=== PATIENT | female | born 1950 | race Caucasian/White ===

== ENCOUNTER 2020-04-04 07:15 | Day surgery (SDC) | payer MEDICARE, OTHER, SELFPAY ==
[2020-04-01 09:33] VITALS: BMI 41.5
--- NOTE | 2020-04-02 12:39 | HP_ITS ---
DATE OF SERVICE: 04/04/2020 DATE OF PROPOSED SURGERY: April 04, 2020. PREOPERATIVE DIAGNOSES: 1. Hammertoe, right 2nd toe. 2. Hammertoe, right 3rd toe. 3. Hammertoe, right 4th toe. PLANNED PROCEDURES: 1. Hammertoe repair, right 2nd. 2. Hammertoe repair, right 3rd. 3. Hammertoe repair, right 4th. PLANNED ANESTHESIA: MAC anesthesia. CHIEF COMPLAINT AND HISTORY OF PRESENT ILLNESS: Hortencia Mae is a 69-year-old female, who relates history of painful hammertoe deformities bilateral feet, the right foot being more advanced than the left. She relates her pain has been present over the past several months and has progressively worsened. Her pain is aggravated by shoe gear and walking activity. Conservative treatment consisting of altered shoe gear as well as accommodative padding has proven ineffective and the patient is now requesting surgical treatment. PAST MEDICAL HISTORY: Positive for obesity, hypertension, hyperlipidemia, osteoarthritis. MEDICATIONS: Quinapril, hydrochlorothiazide, fish oil, vitamin D3, Centrum vitamins, and turmeric. ALLERGIES: THE PATIENT HAS NO KNOWN DRUG ALLERGIES OR SENSITIVITIES. SOCIAL HISTORY: The patient denies smoking, she does relate alcohol use, drinks 1 to 2 cups of coffee per day and also relates occasional marijuana use. FAMILY HISTORY: Significant for arthritis, hypertension, diabetes. PODIATRIC PHYSICAL EXAMINATION: VASCULAR EXAM: The patient displays +2/4 pulses with DP and PT arteries bilateral feet. The patient also displays +2/4 pitting edema bilateral feet, ankles, and legs. NEUROLOGIC EXAM: Reveals intact sensation bilateral. DERMATOLOGIC EXAM: Reveals intact skin bilateral. ORTHOPEDIC EXAM: Reveals bunion deformity bilateral first metatarsophalangeal joint, as well as hammertoe deformity bilateral 2nd through 5th toes. The patient was seen most recently in my office on February 23, 2020. Preoperative informed consent will be obtained from the patient on the morning of surgery, April 04, 2020. Preoperative medical clearance has been provided by the patient's primary care physician, Dr. Walls. NIRAV Valdivia / [phone]
--- NOTE | 2020-04-02 17:52 | MHC.SHP ---
Pre-Procedural Eval Section A The patient is an INPATIENT: No Changes since office visit: No Cold of Flu in the past 2 weeks, No New Medical Problems, No Changes in Medication and No Patient answered all questions The History & Physical has been completed within 30 days and I have reviewed it.: Yes Section B Chief Complaint: HAMMER TOE RIGHT SECOND AND THIRD Details of Present Illness: pain with shoes Relevant Family History (Specify if Yes): No Relevant Social History: Other (specify) (marijuana use) Present Medications: see Short Stay Collaborative assessment Allergies: Allergies Allergy/AdvReac Type Severity Reaction Status Date / Time ciprofloxacin Allergy Anaphylaxis Verified 04/01/20 09:32 levofloxacin Allergy Itching Verified 04/01/20 09:32 Plan Diagnosis/Plan: Unchanged Patient has been examined and remains a candidate for the planned procedure
--- NOTE | 2020-04-03 14:08 | HO.ANESPROP2 ---
Documented by User: Amparo Ramírez 04/03/20 14:10 HPI - Anesthesia Eval Consult details Narrative: 69yo F for Hammertoe Repair PCP cleared [facility] Past Medical History Medical History Arthritis COPD (chronic obstructive pulmonary disease) Dental bridge present DJD (degenerative joint disease) Elevated cholesterol HTN (hypertension) Hx: UTI (urinary tract infection) PVD (peripheral vascular disease) Surgical History Surgical History History of tooth extraction History of total bilateral knee replacement (TKR) Hx of bilateral breast biopsy Hx of tonsillectomy Social History Social History (Updated 04/01/20 @ 09:33 by Gabriela Calloway) Smoking Status: Former smoker Smoking Quit Date: 2015 Use of substances other than those prescribed or required for medical reasons: No Advance Directives: No Advance Directives Information Provided: No Advance Directives on File: No Meds Allergies Allergy/AdvReac Type Severity Reaction Status Date / Time ciprofloxacin Allergy Anaphylaxis Verified 04/04/20 07:36 levofloxacin Allergy Itching Verified 04/04/20 07:36 Home Medications Medication Instructions Recorded Confirmed Type quinapril 40 mg PO BID 04/01/20 04/04/20 History Exam Exam Date and Time: April 03, 2020 1408 Height,Weight and Vital Signs: Height 5 ft 5 in Weight 113.398 kg Narrative Narrative: EKG 02/2020: SR@60, mild LVH (old), No acute changes Assessment and Plan Assessment Anesthesia Assessment: Chart Reviewed Documented by User: Zarina West 04/04/20 09:01 [facility] Past Medical History Medical History Arthritis COPD (chronic obstructive pulmonary disease) Dental bridge present DJD (degenerative joint disease) Elevated cholesterol HTN (hypertension) Hx: UTI (urinary tract infection) PVD (peripheral vascular disease) Surgical History Surgical History History of tooth extraction History of total bilateral knee replacement (TKR) Hx of bilateral breast biopsy Hx of tonsillectomy Social History Social History (Updated 04/01/20 @ 09:33 by Gabriela Calloway) Smoking Status: Former smoker Smoking Quit Date: 2015 Use of substances other than those prescribed or required for medical reasons: No Advance Directives: No Advance Directives Information Provided: No Advance Directives on File: No Meds Allergies Allergy/AdvReac Type Severity Reaction Status Date / Time ciprofloxacin Allergy Anaphylaxis Verified 04/04/20 07:36 levofloxacin Allergy Itching Verified 04/04/20 07:36 Home Medications Medication Instructions Recorded Confirmed Type quinapril 40 mg PO BID 04/01/20 04/04/20 History
[2020-04-04 07:38] VITALS: BP 154/83; PULSE 70; RESP 18; TEMP 36.6; O2SAT 95
[2020-04-04] MEDS: Lactated Ringers 1,000 ML 100 ML IVCONT (07:56)
[2020-04-04] MEDS: ceFAZolin Sodium/Dextrose,Iso 2 GM/50 ML PIGGYBACK IV (07:57)
--- NOTE | 2020-04-04 09:40 | MHC.SHP ---
Pre-Procedural Eval Section A The patient is an INPATIENT: No Changes since office visit: No Cold of Flu in the past 2 weeks, No New Medical Problems, No Changes in Medication and No Patient answered all questions The History & Physical has been completed within 30 days and I have reviewed it.: Yes Section B Chief Complaint: HAMMER TOE RIGHT SECOND AND THIRD Relevant Family History (Specify if Yes): No Relevant Social History: None Medical History: No relevant PMH Allergies: Allergies Allergy/AdvReac Type Severity Reaction Status Date / Time ciprofloxacin Allergy Anaphylaxis Verified 04/04/20 07:36 levofloxacin Allergy Itching Verified 04/04/20 07:36 Plan Diagnosis/Plan: Unchanged Patient has been examined and remains a candidate for the planned procedure
--- NOTE | 2020-04-04 09:40 | PM.OP ---
Brief Operative Note Date of Service: 04/04/20 Pre-op diagnosis: hamertoe deformity right 2, 3 and 4th toes Post-op diagnosis: other (hammertoe right 2, 3 and 4th toes and contracture right 2nd mtpj) Procedure: hammertoe repair right 2, 3 and 4th toes and extensor tenotomy and capsulotomy right 2nd mtpj Surgeon: Kvng Yusuf Estimated blood loss (mL): 1.0 Tourniquet time (min): 40 Condition: stable Disposition: PACU
[2020-04-04 09:42] VITALS: BP 143/76; PULSE 65; RESP 16; TEMP 36.4; O2SAT 98
[2020-04-04 09:57] VITALS: BP 148/69; PULSE 64; RESP 16; O2SAT 98
[2020-04-04 10:12] VITALS: BP 149/65; PULSE 60; RESP 16; TEMP 36.1; O2SAT 99
--- NOTE | 2020-04-04 10:54 | OP_ITS ---
SURGEON: Kvng Yusuf DPM PREOPERATIVE DIAGNOSIS: POSTOPERATIVE DIAGNOSIS: PROCEDURE PERFORMED: ESTIMATED BLOOD LOSS: COMPLICATIONS: ANESTHESIA: Consisted of local administration of a total of 8 mL of an equal mix of 2% lidocaine with epinephrine 1:100,000 of 0.5% Marcaine plain. Intravenous sedation was provided by the anesthesia department. ANESTHESIOLOGIST: Dr. SovagoDr. Lo ASSISTANTS: SPECIMENS: PREOPERATIVE DIAGNOSES: 1. Hammertoe, right 2nd. 2. Hammertoe, right 3rd. 3. Hammertoe, right 4th. POSTOPERATIVE DIAGNOSES: 1. Hammertoe, right 2nd. 2. Hammertoe, right 3rd. 3. Hammertoe, right 4th. 4. 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 PROCEDURES PERFORMED: 1. Hammertoe repair, right 2nd. 2. Hammertoe repair, right 3rd. 3. Hammertoe repair, right 4th. 4. Extensor tenotomy and dorsal capsulotomy of the right 2nd metatarsophalangeal joint. ASSISTANCE SURGEON: Dr. Redding. INTRODUCTION: The patient was brought to the operating room, placed on the operating table in the supine position. After having been suitably anesthetized with local infiltrative anesthesia, the right lower extremity was then prepped and draped in the usual sterile manner. Please note that prior to the start of the procedure, the right foot was exsanguinated utilizing Esmarch bandage, and right ankle tourniquet was inflated to 250 mmHg pressure for the duration of the procedures. HAMMERTOE REPAIR RIGHT 2ND, 3RD, AND 4TH TOES: Attention was directed to the dorsum of the right 2nd, 3rd, and 4th toes where midline incisions were placed, effected centered over the dorsum of the proximal interphalangeal joint of each individual digit. The skin incisions were underscored and retracted. Hemostasis was acquired as necessary. A transverse incision was effected through the extensor tendon complex at the level of the proximal interphalangeal joint and extensor tendon was underscored and retracted. The hypertrophic head of the proximal phalanx was delivered from the wound and excised utilizing sagittal saw. The hypertrophic middle phalanx of the 2nd toe, base was resected utilizing sagittal saw as well. The wounds were irrigated with copious amounts of sterile saline. Utilizing the hemostats, the flexor tendon was isolated and tenotomized at the level of the proximal interphalangeal joint on each individual digit. Extensor tendon was coapted to maintain utilizing 3-0 Vicryl. Skin margins closed with 4-0 nylon. Please note, on the 2nd toe, the proximal phalanx was still contracted and would not lay flat and therefore, an additional procedure was performed with an incision approximately 1.5 cm in length centered over the dorsum of the right 2nd metatarsophalangeal joint. Incision was deepened in same plane. Hemostasis was acquired utilizing hemostats. Extensor tendons were identified and tenotomized via sharp dissection. A dorsal, medial, and lateral capsulotomy was performed via sharp dissection. This gave excellent reduction of the contracture of this joint and allowed the proximal phalanx to lay flat. The skin margins were closed with 4-0 nylon. CONCLUSION: At the inclusion of these procedures, the operative sites were injected with 5 mL of Marcaine, 0.5% plain, 1 mL of dexamethasone phosphate. Surgical incisions were dressed with Xeroform, 1 inch Conform, and 2 inch Conform as well as Betadine-soaked gauze. The patient tolerated the surgery and anesthesia well. The right ankle tourniquet was deflated. Normal blood flow reestablished to the right lower extremity. The patient was discharged to Recovery with vital signs stable via cart. FINAL DISPOSITION: The patient is discharged to home with instructions for self-care and include the followin. To keep the dressings dry, clean, and intact. 2. To keep the right leg elevated with ice above the ankle. 3. To take all medications as prescribed. 4. To limit activity to minimum. 5. To always use surgical shoe and walker when ambulating. 6. Lastly, the patient already has prescriptions at home for ibuprofen 800 mg one p.o. t.i.d. p.c., gabapentin 400 mg one p.o. daily at bedtime, and a prescription for oxycodone 5 mg total number of 10, 1 p.o. q.6h p.r.n. pain. Lastly, I am also going to give a prescription for Keflex 500 mg total #20 one p.o. b.i.d. for this patient. NIRAV Valdivia/NIR / [phone]
== END 2020-04-04 10:40 | disposition home or self-care (01) ==
PROVIDERS: PCP Internal Medicine; Visit Provider Podiatrist
PROC: (CPT 28285; principal; 2020-04-04 08:40)
DX: M20.41 Other hammer toe(s) (acquired), right foot (principal); M24.574 Contracture, right foot; M19.90 Unspecified osteoarthritis, unspecified site; I10 Essential (primary) hypertension; J44.9 Chronic obstructive pulmonary disease, unspecified; Z79.899 Other long term (current) drug therapy; Z88.1 Allergy status to other antibiotic agents; Z87.891 Personal history of nicotine dependence
CPT/HCPCS: 28285 ×3; 28234; 88304; 88311; J0690; J1100; J2250

== ENCOUNTER → 2020-04-29 13:16 | Outpatient (BNVA) | payer MEDICARE, OTHER, SELFPAY | PROVIDERS: PCP Internal Medicine; Visit Provider Physician Assistant | DX: Z76.89 Persons encountering health services in other specified circumstances (principal) ==

== ENCOUNTER → 2020-05-02 08:17 | Outpatient (BNVA) | payer MEDICARE, OTHER, SELFPAY | PROVIDERS: PCP Internal Medicine; Visit Provider Surgery | DX: E66.01 Morbid (severe) obesity due to excess calories (principal); I10 Essential (primary) hypertension; J44.9 Chronic obstructive pulmonary disease, unspecified | CPT/HCPCS: Q3014 ==

== ENCOUNTER 2020-05-20 08:13 | Outpatient (REF) | payer MEDICARE, OTHER, SELFPAY ==
--- NOTE | 2020-05-20 08:34 | ECG_ITS ---
Test Reason : MORBID OBESITY Blood Pressure : / mmHG Vent. Rate : 080 BPM Atrial Rate : 080 BPM P-R Int : 164 ms QRS Dur : 092 ms QT Int : 370 ms P-R-T Axes : 010 -24 054 degrees QTc Int : 426 ms Normal sinus rhythm Voltage criteria for left ventricular hypertrophy Nonspecific ST abnormality Abnormal ECG No previous ECGs available Referred By: Norman Mueller Electronically Signed By:PARTHA LUNA
[2020-05-20 08:58] LABS: MANUAL DIFF FLAG NO
[2020-05-20 09:08] LABS: Basophils Percent Auto 0.5 % (0-2); Eosinophils Absolute Auto 0.1 X10*3/uL (0.0-0.4); Eosinophils Percent Auto 1.6 % (0-4); Hematocrit 42.8 % (37-47); Hemoglobin 14.1 g/dl (12.0-16.0); Imm Gran Abs Auto 0.02 X10*3/uL (0.00-0.03); Imm Gran Pct Auto 0.3 % (0.0-0.4); Lymphocytes Absolute Auto 1.9 X10*3/uL (1.2-4.9); Lymphocytes Percent Auto 29.1 % (20-40); Mean Corpuscular HGB Conc 32.9 g/dl (31.0-35.0); Mean Corpuscular Hemoglobin 29.3 pg (27.0-33.0); Mean Corpuscular Volume 88.8 fL (80-98); Monocytes Absolute Auto 0.6 X10*3/uL (0.1-1.2); Monocytes Percent Auto 8.8 % (2-11); Neutrophils Absolute Auto 3.8 X10*3/uL (2.0-8.3); Neutrophils Percent Auto 59.7 % (45-73); Platelet Count 316 X10*3/uL (160-400); Red Blood Count 4.82 X10*6/uL (4.20-5.50); Red Cell Distribution Width 13.6 % (11.0-16.0); White Blood Count 6.4 X10*3/uL (4.8-10.8)
[2020-05-20 09:19] LABS: Estimated Average Glucose 111 mg/dL; Hemoglobin A1c % 5.5 %
[2020-05-20 09:39] LABS: Alanine Aminotransferase 31 U/L (0-31); Albumin Level 4.6 g/dL (3.5-5.0); Alkaline Phosphatase 60 U/L (39-117); Anion Gap 13 (12-20); Aspartate Amino Transferase 29 U/L (5-31); Bilirubin Total 0.5 mg/dL (0.0-1.0); Blood Urea Nitrogen 24 mg/dL (9-16); C Reactive Protein 0.24 mg/dL (< or = 0.50); Calcium 9.3 mg/dL (8.4-10.2); Carbon Dioxide 27 mmol/L (22-29); Chloride 104 mmol/L (96-108); Cholesterol 199 mg/dL; Estimated Glomerular Filt Rate > 60; Glucose Random 109 mg/dL (60-115); HDL Cholesterol 53 mg/dL; LDL Cholesterol Calculated 125 mg/dl; Potassium 4.2 mmol/l (3.3-5.1); Sodium 140 mmol/L (135-145); Total Protein 7.7 g/dL (6.5-8.0); Triglycerides 108 mg/dL
[2020-05-20 09:54] LABS: Ferritin 223 ng/mL (10-250); TSH reflex Free T4 2.25 mIU/mL (0.32-4.0); Vitamin D 25-OH Total 33.4 ng/mL (>30)
--- NOTE | 2020-05-20 10:10 | XR_ITS ---
EXAMINATION: XR CHEST CLINICAL INFORMATION: Obesity COMPARISON: None TECHNIQUE: 2 views of the chest were obtained. FINDINGS: The cardiac silhouette is upper normal in size in the thoracic aorta is tortuous. Hilar and mediastinal contours are otherwise unremarkable. The lungs are clear. There is no pleural effusion or pneumothorax. There are degenerative changes of the spine and thoracolumbar scoliosis. XR/XR chest 2V IMPRESSION: Upper normal-size cardiac silhouette. Scoliosis and degenerative changes of the spine.
[2020-05-20 10:11] LABS: Folate > 20.0 ng/mL (> or = 4.0); Vitamin B12 550 pg/mL (200-900)
[2020-05-21 11:37] LABS: H Pylori Breath Test NOT DETECTED (NOT DETECTED)
[2020-05-21 17:33] LABS: Insulin Level Total 17.9 uIU/mL
[2020-05-22 10:42] LABS: Calcium (PTHI) 9.3 mg/dL (8.6-10.4); PTHI 29 pg/mL (14-64)
[2020-05-23 00:53] LABS: Zinc 89 mcg/dL (60-130)
[2020-05-24 15:47] LABS: Vitamin B1 18 nmol/L (8-30)
[2020-05-25 16:07] LABS: Vitamin A 47 mcg/dL (38-98)
== END 2020-05-20 08:14 | disposition home or self-care (01) ==
LOC: HO.LAB 08:13
PROVIDERS: PCP Internal Medicine; Visit Provider Surgery
DX: E66.01 Morbid (severe) obesity due to excess calories (principal); I10 Essential (primary) hypertension; J44.9 Chronic obstructive pulmonary disease, unspecified
CPT/HCPCS: 36415; 71046; 80053; 80061; 82306; 82607; 82728; 82746; 83013; 83036; 83525; 83970; 84425; 84443; 84590; 84630; 85025; 86140; 93005; 99211; 99212

== ENCOUNTER → 2020-05-21 09:46 | Outpatient (REF) | payer MEDICARE, OTHER, SELFPAY ==
--- NOTE | 2020-05-21 09:49 | US_ITS ---
EXAMINATION: US COMPLETE ABDOMEN WITH LIVER ELASTOGRAPHY CLINICAL INFORMATION: Obesity, pre-op COMPARISON: None. TECHNIQUE: Real-time imaging of the abdominal viscera. Noninvasive ultrasound liver fibrosis assessment is performed using Cheri ElastPQ point quantification shear wave elastography (pSWE) with a 5 MHz transducer. Multiple elastography samples are obtained. FINDINGS: PANCREAS: The visualized pancreatic head and body are normal in appearance. The remainder of the pancreas is obscured from visualization by the overlying bowel gas. The tail of the pancreas is not visualized. ABDOMINAL AORTA: The proximal, middle, and distal aortic segments are normal in caliber. There is atherosclerotic plaque seen in the proximal abdominal aorta. INFERIOR VENA CAVA: Visualized portions are normal. LIVER: Normal. The liver demonstrates normal size, contour and increased echogenicity. No focal lesion or intrahepatic biliary duct dilatation. The right lobe measures 17.2 cm in length. The left lobe measures 11.0 cm in length. There is normal hepatopedal flow seen in the main portal portal vein on Doppler exam. Shear wave elastography provides a median stiffness of 1.27 m/s (reference: normal median stiffness is 0.81 - 1.22 m/s). The IQR/median stiffness to assess sampling precision is 0.14 (reference: optimal IQR/median stiffness is under 0.3). GALLBLADDER: Normal. The gallbladder is physiologically distended without evidence of stones, sludge, polyps, wall thickening or pericholecystic fluid. COMMON BILE DUCT: Normal in caliber measuring 0.7 cm in diameter. RIGHT KIDNEY: No hydronephrosis. No renal calculi or focal parenchymal lesions. The kidney measures 11.7 cm in maximum dimension. There is mild pelvic fullness. LEFT KIDNEY: No hydronephrosis. No renal calculi or focal parenchymal lesions. The kidney measures 11.7 cm in maximum dimension. There is a small parapelvic cyst measuring 2.2 x 1.1 x 1.5 cm. SPLEEN: The spleen measures 8.6 cm in maximum dimension. FREE FLUID: None. US/US abdomen comp w elastography IMPRESSION: 1. Hepatic steatosis without focal lesion seen. 2. Mild right renal pelvic fullness and a midpole parapelvic left renal cyst. 2. Elastography: Normal to mild fibrosis, Metavir score F0-F1.
--- NOTE | 2020-05-21 09:49 | FL_ITS ---
EXAMINATION: XR GI SERIES CLINICAL INFORMATION: Obesity COMPARISON: None TECHNIQUE: Patient was administered thin and thick barium and effervescent granules. Barium tablet was also administered. FINDINGS: There is abnormal esophageal motility. The thoracic esophagus appears slightly dilated and patulous. There is a small hiatal hernia. There is stasis of the barium tablet in the distal thoracic esophagus. No significant gastroesophageal reflux is seen. The stomach and duodenum are normal-appearing. No fold thickening, mass, stricture or ulcer is seen. FLUOROSCOPY TIME: 2 minutes DOSE AREA PRODUCT: 25 pang per centimeter squared. 39 saved fluoroscopic images FL/FL upper GI series IMPRESSION: Patulous appearing thoracic esophagus with abnormal esophageal motility. Small hiatal hernia.
== END ==
LOC: HO.SL 09:46
PROVIDERS: Visit Provider Surgery
DX: Z01.818 Encounter for other preprocedural examination (principal); E66.01 Morbid (severe) obesity due to excess calories; G47.10 Hypersomnia, unspecified; G47.19 Other hypersomnia; K21.9 Gastro-esophageal reflux disease without esophagitis
CPT/HCPCS: 74240; 76705; 76981; 95806

== ENCOUNTER → 2020-05-29 08:09 | Outpatient (BNVA) | payer MEDICARE, OTHER, SELFPAY | PROVIDERS: PCP Internal Medicine; Visit Provider Surgery | DX: E66.01 Morbid (severe) obesity due to excess calories (principal); I10 Essential (primary) hypertension | CPT/HCPCS: Q3014 ==

== ENCOUNTER → 2020-06-05 08:19 | Outpatient (BNVA) | payer MEDICARE, OTHER, SELFPAY | PROVIDERS: PCP Internal Medicine; Visit Provider Dietitian, Registered ==

== ENCOUNTER → 2020-06-06 07:40 | Outpatient (REF) | payer MEDICARE, OTHER, SELFPAY ==
--- NOTE | ~2020-06-06 | NM_ITS ---
Myocardial perfusion study Indication: Abnormal EKG to evaluate for myocardial ischemia Technique: The patient was brought in for a Lexiscan perfusion study on 06/06/2020. Patient performed low-level exercise and was injected 0.4 mg of Lexiscan intravenously. Within a minute of injection, 35 mCi of sestamibi was given intravenously. Images were obtained using the SPECT gamma camera interlaced with the gating device. Images were obtained in supine position. Resting perfusion study was performed on 2020. Patient was administered 35 mCi of sestamibi intravenously at rest. Images were then obtained in supine position. Images obtained with and without CT attenuation. Total DLP 118 mGy-cm. Images were processed with the software and compared side to side in short axis, horizontal long axis and vertical long axis views. Findings: The stress perfusion study showed non attenuated images show mildly reduced uptake in the basal and mid inferoseptal area of the LV myocardium. Remainder of the LV myocardium is normally perfused. Attenuation corrected images show mildly reduced uptake in the distal septum and apex of the LV myocardium.. The gated study shows normal LV systolic function with calculated LVEF of greater than 70 %. LV cavity is normal in size. The gated study shows normal systolic wall thickening and contraction of segments. Resting study shows non attenuated images show moderately reduced uptake in the basal inferior, basal inferoseptal and mid inferoseptal as well as the apical septal wall of the LV myocardium. Attenuation corrected images show moderately reduced uptake in the distal septum and apex of the LV myocardium.. Gating at rest reveals normal systolic wall motion with ejection fraction at 72%. The findings are consistent with no reversible defect suggestive of ischemia. Fixed defect most suggestive attenuation artifact.. NM/NM juan carlos perf SPECT rest & str Impression: 1. Myocardial perfusion imaging study shows likely normal myocardial perfusion 2. Gated LVEF is 72% 3. Transient ischemic dilatation not present EKG is nondiagnostic for ischemia
--- NOTE | 2020-06-06 07:44 | CA_ITS ---
Acquisition Time: 2020-06-06 08:11:03 Total Exercise Time: 00:02:00 Test Indications: Abnormal ECG Medications: SEE CHART Protocol: LEXISCAN Max HR: 098 BPM 64% of Pred: 152 BPM Max BP: 134/084 mmHG Max Work Load: 1.0 METS Pharmacological stress test with Lexiscan injection, while sitting, without anginal symptoms, with isolated PACs, with normotensive response to injection, with nondiagnostic EKG for ischemia. Nuclear images pending. Test reviewed with Dr Macedo. Referred By: Norman Mueller Overread By: SAV CLINTON
== END ==
LOC: HO.CARD 07:40
PROVIDERS: Visit Provider Surgery
DX: R94.31 Abnormal electrocardiogram [ECG] [EKG] (principal)
CPT/HCPCS: 78452; 93017; A9500; J0280; J2785

== ENCOUNTER → 2020-06-24 08:52 | Outpatient (BNVA) | payer MEDICARE, OTHER, SELFPAY | PROVIDERS: PCP Internal Medicine; Visit Provider Surgery | DX: E66.9 Obesity, unspecified (principal); Z68.39 Body mass index [BMI] 39.0-39.9, adult | CPT/HCPCS: Q3014 ==

== ENCOUNTER → 2020-07-19 09:09 | Outpatient (REF) | payer MEDICARE, OTHER, SELFPAY ==
--- NOTE | 2020-07-19 09:12 | CA_ITS ---
Transthoracic Echocardiogram Patient (Last, First, Middle): Hortencia Mae, Gender: Female Date of : 1950 Age: 69 Procedure Date: 07/19/2020 Procedure Type: Transthoracic Echocardiogram Location: OP Height: 165.1 cm Weight: 108.86 kg BSA: 2.14 m2 Heart Rate: bpm BP: 120 / 80 mmHg Cable Systems Installer: DANYA Martínez MD: Norman Mueller MD Nutritional Assistant: Bladimir Macedo MD Symptoms: R94.31 - Abnormal electrocardiogram [ECG] [EKG] Study Quality: Fair/contrast ECG Rhythm: Sinus Conclusions: - 1. Normal LV systolic function with grade 1 diastolic dysfunction 2. Mild mitral and calcification normal cardiac valvular Doppler 3. No gross pericardial effusion Findings Procedure Information The patient receives contrast. Left Ventricle Normal left ventricular size, thickness, and systolic function. The visually estimated ejection fraction is between 60-65%. Spectral Doppler is indicative of an impaired relaxation filling pattern. E/E prime ratio is <8, consistent with normal filling pressures. Evidence suggests grade I (mild) diastolic dysfunction. Right Ventricle Normal right ventricular cavity size and systolic function. Atria Both atria are normal in size. There is no evidence of interatrial shunt. Aortic Valve Normal aortic valve structure and function. There is no aortic valve stenosis. There is no aortic valve regurgitation. Mitral Valve There is mild anterior mitral leaflet thickening. There is mild mitral annular calcification. There is no mitral valve regurgitation. There is no mitral valve stenosis. Pulmonic Valve The pulmonic valve is likely normal. There is trace to mild pulmonic valve regurgitation. Tricuspid Valve Normal tricuspid valve structure. Tricuspid regurgitation envelope is inadequate for calculation of right ventricular systolic pressure. Great Vessels All visible segments of the aorta are normal in size. The pulmonary artery was not well visualized. Venous The inferior vena cava is normal in size and collapses greater than 50% with inspiration. Pericardium/Pleural There is no evidence of pericardial effusion. Prior Study Comparison No prior study available for comparison. Measurements 2D Linear Measurements IVSd: 1.07 0.6-0.9/0.6-1.0 cm LVIDd: 5.33 3.9-5.3/4.2-5.9 cm LVIDd Index: 2.49 2.4-3.2/2.2-3.1 cm/m2 LVIDs: 4.00 2.0-3.6 cm LVPWd: 1.00 0.7-1.1 cm Ao Root: 3.90 2.1-3.5 cm LA Diam: 2.70 2.7-3.8/3.0-4.0 cm LAIDs Index: 1.26 1.5-2.3 cm/m2 LV Mass: 263.96 67-162/88-224 g LV Mass Index: 123.34 43-95/49-115 g/m2 LVOT Diam: 2.00 3.0+(-)1.3 cm Mitral Valve MV Pk E: 0.59 MV PK A: 1.00 MV Decel Time: 287.00 E/A: 0.60 E'Lateral: 6.53 E'Medial: 5.22 E/E' Med: 11.30 E/E' Lat: 9.00 PHT: 84.00 MVA PHT: 2.62 Decel Marathon: 2.05 Aortic Valve AoV Pk Percy: 1.03 AoV Mn Percy: 0.77 AoV VTI: 0.25 AoV Pk Grad: 4.00 Aov Mn Grad: 3.00 ISAURA Cont.VTI: 2.59 LVOT LVOT Pk Percy: 0.81 LVOT Mn Percy: 0.58 LVOT VTI: 0.20 LVOT Pk Grad: 3.00 LVOT Mn Grad: 1.00 LVOT Diam: 2.00 LVOT Area: 3.14 Diastolic Function MV Pk E: 0.59 MV Pk A: 1.00 E/A: 0.60 E'Medial: 5.22 E/E' Med: 11.30 E' Laterial: 6.53 E/E' Lat: 9.00 Great Vessels Aorta Ao Root-2D: 3.90 2.0-3.7 cm Ao Asc: 3.40 2.1-3.4 cm Ao Arch: 2.40 Updated in Other Vendor System with Status of Final Bladimir Macedo MD electronically signed on 07/20/2020 2:58:21 PM with status of Final
== END ==
LOC: HO.CARD 09:09
PROVIDERS: Visit Provider Surgery
DX: Z01.818 Encounter for other preprocedural examination (principal); R06.02 Shortness of breath; I10 Essential (primary) hypertension; R94.31 Abnormal electrocardiogram [ECG] [EKG]
CPT/HCPCS: 93306; 99212; Q9957

== ENCOUNTER → 2020-07-31 08:11 | Outpatient (BNVA) | payer MEDICARE, OTHER, SELFPAY | PROVIDERS: PCP Internal Medicine; Visit Provider Dietitian, Registered ==

== ENCOUNTER → 2020-08-01 13:08 | Outpatient (BNVA) | payer MEDICARE, OTHER, SELFPAY | PROVIDERS: PCP Internal Medicine; Visit Provider Internal Medicine | DX: G47.33 Obstructive sleep apnea (adult) (pediatric) (principal); G47.34 Idiopathic sleep related nonobstructive alveolar hypoventilation | CPT/HCPCS: 99202 ==

== ENCOUNTER → 2020-08-14 08:23 | Outpatient (BNVA) | payer MEDICARE, OTHER, SELFPAY | PROVIDERS: PCP Internal Medicine; Visit Provider Surgery | DX: E66.01 Morbid (severe) obesity due to excess calories (principal); Z68.41 Body mass index [BMI] 40.0-44.9, adult | CPT/HCPCS: Q3014 ==

== ENCOUNTER → 2020-09-25 13:06 | Outpatient (BNVA) | payer MEDICARE, OTHER, SELFPAY | PROVIDERS: PCP Internal Medicine; Visit Provider Internal Medicine | DX: E66.01 Morbid (severe) obesity due to excess calories (principal); G47.33 Obstructive sleep apnea (adult) (pediatric); G47.34 Idiopathic sleep related nonobstructive alveolar hypoventilation | CPT/HCPCS: 99212 ==